=== PATIENT | female | born 1945 | race African-American/Black ===

== ENCOUNTER → 2016-10-22 | Outpatient (CLI) | payer MEDICARE ==
[~2016-10-22] MED LIST: "\\\"BP PILL\\\""; ALTOPREV20 MG PO; ASPIRIN81 M1 PO; DAYPRO600 M1 PO; LISINOPRIL-HYDR1 TA1 PO; TRAMADOL HCL50 MG PO; VICODIN 5/500 505 MG PO
== END | disposition home or self-care (01) ==
LOC: RAD 09:20
DX: M25.561 Pain in right knee (principal)

== ENCOUNTER → 2016-10-27 | Outpatient (CLI) | payer MEDICARE | END | disposition home or self-care (01) | LOC: MAMMO 04:36 | DX: R92.1 Mammographic calcification found on diagnostic imaging of breast (principal); Z85.3 Personal history of malignant neoplasm of breast ==

== ENCOUNTER → 2017-08-04 | Outpatient (CLI) | payer OTHER | END | disposition home or self-care (01) | LOC: RAD 13:17 | DX: M25.551 Pain in right hip (principal) ==

== ENCOUNTER → 2017-10-22 | Outpatient (CLI) | payer OTHER | END | disposition home or self-care (01) | LOC: RAD 10:21 | DX: M17.11 Unilateral primary osteoarthritis, right knee (principal) ==

== ENCOUNTER 2017-11-20 19:50 | Emergency (ER) | payer OTHER ==
[~2017-11-20] VITALS: Ht 170.1 cm; Wt 81.6 kg
[2017-11-20 19:51] VITALS: BP 146/78
[2017-11-20 20:42] LABS: BASO % 0.5 % (0.0-1.0); HEMOGLOBIN 10.4 g/dl (12.0-16.0); LYMPH # 0.4 10*3/uL (1.3-4.4); LYMPH % 8.7 % (27.0-41.0); MEAN CELL VOLUME 86.8 fl (81.0-99.0); MEAN CORPUSCULAR HGB 29.1 pg (27.0-31.0); MEAN CORPUSCULAR HGB CONC 33.5 g/dl (33.0-37.0); MEAN PLATELET VOLUME 12.8 fl (9.6-12.3); MONO # 0.5 10*3/uL (0.1-1.0); MONO % 11.4 % (3.0-9.0); NEUT # 3.3 10*3/uL (2.3-7.9); NEUT % 79.2 % (47.0-73.0); PLATELET COUNT AUTOMATED 139 10*3/uL (130-400); RED BLOOD COUNT 3.57 10*6/uL (4.10-5.10); RED CELL DISTRI WIDTH 13.2 % (0-14.5); WHITE BLOOD COUNT 4.1 10*3/uL (4.8-10.8)
[2017-11-20 21:00] LABS: ALBUMIN 3.4 gm/dl (3.1-4.5); ALKALINE PHOSPHATASE 55 U/L (45-117); BUN 14 mg/dl (7-24); CHLORIDE 103 mmol/L (98-107); CREATININE 1.06 mg/dL (0.55-1.02); POTASSIUM 3.1 mmol/L (3.5-5.1); SGOT/AST 21 IU/L (3-35); SGPT/ALT 23 U/L (12-78); SODIUM 139 mmol/L (136-145); TOTAL PROTEIN 7.9 gm/dL (6.4-8.2)
[2017-11-20 21:01] LABS: TROPONIN I < 0.015 ng/ml (<0.045)
[2017-11-20] MEDS ORDERED: ZOFRAN ODT4 MG SL (22:56)
[2017-11-20] MEDS ORDERED: K-TAB20 MEQ PO (22:56)
[2017-11-24] MEDS ORDERED: ZESTORETIC 20-1 EACH PO (21:10)
== END 2017-11-20 23:05 | disposition home or self-care (01) ==
LOC: ED 19:50
PROVIDERS: Physician Assistant
DX: E87.6 Hypokalemia (principal); B34.9 Viral infection, unspecified; G89.29 Other chronic pain; M25.561 Pain in right knee; Z79.899 Other long term (current) drug therapy; Z88.0 Allergy status to penicillin

== ENCOUNTER → 2018-07-01 | Outpatient (CLI) | payer OTHER ==
[~2018-07-01] MED LIST changes: +K-TAB20 MEQ PO; +ZESTORETIC 20-1 EACH PO; +ZOFRAN ODT4 MG SL
== END | disposition home or self-care (01) ==
LOC: MAMMO 08:34
DX: R92.1 Mammographic calcification found on diagnostic imaging of breast (principal); Z85.3 Personal history of malignant neoplasm of breast

== ENCOUNTER 2018-11-09 18:24 | Emergency (ER) | payer OTHER ==
[~2018-11-09] VITALS: Ht 170.1 cm; Wt 83.9 kg
--- NOTE | ~2018-11-09 | EKG ---
[place], [place] ELECTROCARDIOGRAM REPORT NAME: BRITNEY DUMONT UNIT #: [id number] ROOM: DOCTOR: EPIPHANY DRAFT REPORT BIRTHDATE: [birth year] [facility] Test Date: 2018-11-09 Test Time: 18:28:29 Pat Name: BRITNEY DUMONT Department: ER Room: Gender: F Flare Man: Evie Bryant : 1945 Requested By: SHAHLA MACEDO Order Number: [id number] Reading MD: Johan Cortes Measurements Intervals [place] Rate: 69 P: 46 GA: 147 QRS: -19 QRSD: 90 T: -3 QT: 398 QTc: 427 Interpretive Statements Sinus rhythm Probable left atrial enlargement Abnormal R-wave progression, early transition Left ventricular hypertrophy Anterior Q waves, possibly due to LVH Borderline T abnormalities, inferior leads Electronically Signed On 11-10-2018 11:00:41 PDT by Johan Cortes CM:EKGRPT:ELECTROCARDIOGRAM REPORT [id number] SHAHLA MCKEE DRAFT REPORT SHAHLA MACEDO M.D.
[2018-11-09 18:36] VITALS: BP 119/75
[2018-11-09 19:48] LABS: BASO % 0.3 % (0.0-1.0); EOS % 0.5 % (1.0-4.0); HEMATOCRIT 34.1 % (37.0-47.0); LYMPH # 1.1 10*3/uL (1.3-4.4); LYMPH % 17.1 % (27.0-41.0); MEAN CELL VOLUME 90.9 fl (81.0-99.0); MEAN CORPUSCULAR HGB 29.3 pg (27.0-31.0); MEAN CORPUSCULAR HGB CONC 32.3 g/dl (33.0-37.0); MEAN PLATELET VOLUME 12.8 fl (9.6-12.3); MONO # 0.4 10*3/uL (0.1-1.0); MONO % 6.5 % (3.0-9.0); NEUT # 4.8 10*3/uL (2.3-7.9); NEUT % 75.4 % (47.0-73.0); PLATELET COUNT AUTOMATED 162 10*3/uL (130-400); RED BLOOD COUNT 3.75 10*6/uL (4.10-5.10); RED CELL DISTRI WIDTH 12.8 % (0-14.5); WHITE BLOOD COUNT 6.3 10*3/uL (4.8-10.8)
[2018-11-09 20:08] LABS: ALBUMIN 3.3 gm/dl (3.1-4.5); ALKALINE PHOSPHATASE 63 U/L (45-117); BUN 17 mg/dl (7-24); CHLORIDE 108 mmol/L (98-107); LIPASE 92 U/L (73-393); POTASSIUM 3.8 mmol/L (3.5-5.1); SGOT/AST 16 IU/L (3-35); SGPT/ALT 18 U/L (12-78); SODIUM 145 mmol/L (136-145); TOTAL PROTEIN 7.9 gm/dL (6.4-8.2)
[2018-11-09] MEDS ORDERED: ZOFRAN4 MG PO (20:36)
[2018-11-09 23:18] LABS: BILIRUBIN NEGATIVE (NEGATIVE); BLOOD NEGATIVE (NEGATIVE); CLARITY SL CLOUDY (CLEAR); COLOR YELLOW (YELLOW); GLUCOSE NEGATIVE (NEGATIVE); KETONE NEGATIVE (NEGATIVE); LEUKO ESTERASE NEGATIVE (NEGATIVE); NITRITE NEGATIVE (NEGATIVE); SPECIFIC GRAVITY 1.025 (1.005-1.030)
[2018-11-09 23:29] LABS: BACTERIA 1+; EPITHELIAL CELLS TNTC
== END 2018-11-10 00:39 | disposition home or self-care (01) ==
LOC: ED 18:24
PROVIDERS: Nurse Practitioner Family
DX: R55 Syncope and collapse (principal); R11.10 Vomiting, unspecified; R10.9 Unspecified abdominal pain; I10 Essential (primary) hypertension; Z79.899 Other long term (current) drug therapy; Z79.82 Long term (current) use of aspirin

== ENCOUNTER 2020-08-17 14:27 | Emergency (ER) | payer OTHER ==
[~2020-08-17] VITALS: Wt 86.2 kg
[~2020-08-17 14:27] MED LIST changes: +ZOFRAN4 MG PO
[2020-08-17 14:31] VITALS: BP 145/70
== END 2020-08-17 16:42 | disposition home or self-care (01) ==
LOC: ED 14:27
DX: M13.831 Other specified arthritis, right wrist (principal); Z79.899 Other long term (current) drug therapy; Z79.82 Long term (current) use of aspirin

== ENCOUNTER → 2021-05-06 | Outpatient (CLI) | payer OTHER | END | disposition home or self-care (01) | LOC: RAD 09:29 | PROVIDERS: ATTEND Internal Medicine | DX: M19.012 Primary osteoarthritis, left shoulder (principal); M19.011 Primary osteoarthritis, right shoulder; M25.712 Osteophyte, left shoulder; M17.0 Bilateral primary osteoarthritis of knee ==

== ENCOUNTER 2022-01-24 08:04 | Emergency (ER) | payer OTHER ==
[~2022-01-24] VITALS: Ht 170.1 cm; Wt 83.9 kg
[2022-01-24 08:14] VITALS: BP 128/86
== END 2022-01-24 11:22 | disposition home or self-care (01) ==
LOC: ED 08:04
DX: M25.561 Pain in right knee (principal); M79.604 Pain in right leg; Z79.899 Other long term (current) drug therapy; Z79.82 Long term (current) use of aspirin; Z90.710 Acquired absence of both cervix and uterus; Z90.89 Acquired absence of other organs

== ENCOUNTER 2023-11-03 02:58 | Inpatient (IN) | payer MEDICARE ==
[2023-10-30 13:28] VITALS: BP 145/93
[2023-10-30 14:38] LABS: BASO % 0.5 % (0.0-1.0); EOS # 0.1 10*3/uL (0.0-0.4); EOS % 1.8 % (1.0-4.0); LYMPH # 1.4 10*3/uL (1.3-4.4); LYMPH % 36.7 % (27.0-41.0); MEAN CELL VOLUME 92.7 fl (81.0-99.0); MEAN CORPUSCULAR HGB 28.9 pg (27.0-31.0); MEAN CORPUSCULAR HGB CONC 31.2 g/dl (33.0-37.0); MEAN PLATELET VOLUME 11.9 fl (9.6-12.3); MONO # 0.4 10*3/uL (0.1-1.0); MONO % 9.8 % (3.0-9.0); NEUT % 50.9 % (47.0-73.0); PLATELET COUNT AUTOMATED 195 10*3/uL (130-400); RED BLOOD COUNT 3.56 10*6/uL (4.10-5.10); RED CELL DISTRI WIDTH 13.3 % (0-14.5); WHITE BLOOD COUNT 3.9 10*3/uL (4.8-10.8)
[2023-10-30 15:00] LABS: ALKALINE PHOSPHATASE 64 U/L (46-116); BUN 17 mg/dl (9-23); CHLORIDE 105 mmol/L (98-107); POTASSIUM 3.6 mmol/L (3.4-5.1); TOTAL PROTEIN 7.9 gm/dL (6.0-8.0)
[2023-10-30 15:01] LABS: SGPT/ALT < 7 U/L (5-49)
[~2023-11-03] VITALS: Ht 170.2 cm; Wt 81.6 kg
[2023-11-03] VITALS (10 sets, daily range): BP systolic 123–153; BP diastolic 64–92
[~2023-11-03 02:58] MED LIST changes: +FEROSUL325 M1 PO
[2023-11-03] MEDS ORDERED: TRANEXAMIC ACID IN NACL,ISO-OS 100 ML IV ONE ×2 (06:41→07:05)
[2023-11-03] MEDS ORDERED: Lactated Ringer's Solution 1,000 ML IV ONE (06:41)
[2023-11-03] MEDS ORDERED: ceFAZolin sodium/sodium chlor 20 ML IV ONE (06:42)
[2023-11-03 06:53] LABS: BILIRUBIN Negative (Negative); BLOOD Negative (Negative); CLARITY Clear (Clear); COLOR Yellow (Yellow); GLUCOSE Negative (Negative); KETONE Negative (Negative); LEUKO ESTERASE Negative (Negative); NITRITE Negative (Negative)
[2023-11-03] MEDS ORDERED: Lactated Ringer's Solution 1,000 ML IV SCH (07:05)
[2023-11-03] MEDS ORDERED: ceFAZolin sodium 2GM/20ML IV ONE (07:05)
[2023-11-03] MEDS ORDERED: Midazolam Hydrochloride 2 MG/2 ML VIAL IV ONE ×2 (07:05→15:22)
[2023-11-03] MEDS ORDERED: DEXAMETHASONE SODIUM PHOSP/PRESERVATIVE FREE 10 MG/ML VIAL ONE (07:09)
[2023-11-03] MEDS ORDERED: Ropivacaine Hydrochloride 5 MG/ML 20 ML AMP IJ ONE (07:09)
[2023-11-03] MEDS ORDERED: Midazolam Hydrochloride 2 MG/2 ML VIAL ONE (07:10)
[2023-11-03 07:17] LABS: BACTERIA 1+
[2023-11-03] MEDS ORDERED: SODIUM CHLORIDE 0.9% 1,000 ML IV ONE (07:46)
[2023-11-03] MEDS ORDERED: EPINEPHrine/Lidocaine Hydroc 20 ML VIAL ONE (07:48)
[2023-11-03] MEDS ORDERED: Ondansetron Hydrochloride 4 MG/2 ML VIAL IV PRN (07:55)
[2023-11-03] MEDS ORDERED: Acetaminophen/Hydrocodone 5 MG/325 MG TABLET PO PRN (07:55)
[2023-11-03] MEDS ORDERED: MORPHINE Sulfate 4 MG IV PRN (07:55)
[2023-11-03] MEDS ORDERED: MORPHINE Sulfate 2 MG/ML SYR IV PRN (08:35)
[2023-11-03] MEDS ORDERED: Cholecalciferol 2,000 UNIT TABLET (50 MCG) PO SCH (10:00)
[2023-11-03] MEDS ORDERED: DOCUSATE SODIUM 100 MG CAP PO SCH (10:00)
[2023-11-03] MEDS ORDERED: ASPIRIN ENTERIC COATED 81 MG TAB PO SCH (10:00)
[2023-11-03] MEDS ORDERED: LISINOPRIL 20 MG TAB PO SCH (13:35)
[2023-11-03] MEDS ORDERED: HYDROCHLOROTHIAZIDE 12.5 MG CAP PO SCH (13:35)
[2023-11-03] MEDS ORDERED: ceFAZolin sodium 1 GM in SYRINGE INFUSION 10 ML IV SCH (14:00)
[2023-11-03] MEDS ORDERED: Ondansetron Hydrochloride 4 MG/2 ML VIAL IV ONE (15:22)
[2023-11-03] MEDS ORDERED: GLYCOPYRROLATE IN WATER/PF 0.4 MG/2 ML SYRINGE IV ONE (15:22)
[2023-11-03] MEDS ORDERED: PROPOFOL 200 MG/20 ML VIAL IV ONE (15:22)
[2023-11-03] MEDS ORDERED: POTASSIUM CHLORIDE 20 MEQ TAB PO SCH (18:00)
[2023-11-04] VITALS: BP 124/62
[2023-11-04 05:24] LABS: BUN 16 mg/dl (9-23); CHLORIDE 105 mmol/L (98-107); CHOLESTEROL 182 mg/dL (<200); FREE T4 1.21 ng/dl (0.89-1.76); LDL CHOLESTEROL 111 mg/dL (9-159); POTASSIUM 3.9 mmol/L (3.4-5.1); TRIGLYCERIDES 104 mg/dl (<150)
[2023-11-04 06:01] LABS: HEMATOCRIT 32.7 % (37.0-47.0); MEAN CORPUSCULAR HGB 29.3 pg (27.0-31.0); MEAN CORPUSCULAR HGB CONC 31.2 g/dl (33.0-37.0); MEAN PLATELET VOLUME 13.2 fl (9.6-12.3); PLATELET COUNT AUTOMATED 182 10*3/uL (130-400); RED BLOOD COUNT 3.48 10*6/uL (4.10-5.10); RED CELL DISTRI WIDTH 13.4 % (0-14.5); WHITE BLOOD COUNT 8.8 10*3/uL (4.8-10.8)
[2023-11-04 06:43] LABS: VITAMIN D, 25-HYDROXY 12.3 ng/mL (30-100)
[2023-11-04 06:56] LABS: MANUAL DIFF REFLEX YES
[2023-11-04 06:57] LABS: TOTAL CELLS COUNTED 100 #CELLS
[2023-11-04 06:58] LABS: PLATELET SUFFICIENCY NORMAL (NORMAL)
[2023-11-04 08:00] VITALS: BP 141/67
[2023-11-04] MEDS ORDERED: ASPIRIN ENTERIC COATED 81 MG TAB PO SCH (10:00)
[2023-11-04] MEDS ORDERED: SIMVASTATIN 20 MG TAB PO SCH (10:00)
[2023-11-04] MEDS ORDERED: FERROUS SULFATE 325 MG TAB PO SCH (10:00)
[2023-11-04 12:00] VITALS: BP 104/81
[2023-11-04] MEDS ORDERED: DICLOFENAC SODIUM 100 GM TUBE T SCH (14:00)
[2023-11-04 16:00] VITALS: BP 164/92
[2023-11-04 20:00] VITALS: BP 174/85
[2023-11-04 21:28] VITALS: BP 152/82
[2023-11-05] VITALS: BP 159/74
[2023-11-05 06:24] LABS: BASO % 0.1 % (0.0-1.0); LYMPH # 1.3 10*3/uL (1.3-4.4); LYMPH % 15.6 % (27.0-41.0); MEAN CELL VOLUME 91.7 fl (81.0-99.0); MEAN CORPUSCULAR HGB 29.3 pg (27.0-31.0); MEAN CORPUSCULAR HGB CONC 31.9 g/dl (33.0-37.0); MONO # 0.9 10*3/uL (0.1-1.0); MONO % 10.9 % (3.0-9.0); PLATELET COUNT AUTOMATED 178 10*3/uL (130-400); RED BLOOD COUNT 3.38 10*6/uL (4.10-5.10); RED CELL DISTRI WIDTH 13.3 % (0-14.5); WHITE BLOOD COUNT 8.2 10*3/uL (4.8-10.8)
[2023-11-05 06:46] LABS: BUN 18 mg/dl (9-23); CHLORIDE 102 mmol/L (98-107); POTASSIUM 3.8 mmol/L (3.4-5.1)
[2023-11-05 08:00] VITALS: BP 136/95
[2023-11-05] MEDS ORDERED: HYDROCHLOROTHIAZIDE 25 MG TAB PO SCH (10:00)
[2023-11-05] MEDS ORDERED: LISINOPRIL 40 MG TAB PO SCH (10:00)
[2023-11-05 12:00] VITALS: BP 139/75
[2023-11-05 16:00] VITALS: BP 144/76
[2023-11-05 20:00] VITALS: BP 136/66
[2023-11-06] VITALS: BP 126/71
[2023-11-06 06:19] LABS: BASO % 0.3 % (0.0-1.0); EOS % 0.1 % (1.0-4.0); HEMATOCRIT 34.4 % (37.0-47.0); LYMPH # 1.5 10*3/uL (1.3-4.4); MEAN CORPUSCULAR HGB 29.7 pg (27.0-31.0); MEAN PLATELET VOLUME 12.7 fl (9.6-12.3); MONO # 0.8 10*3/uL (0.1-1.0); MONO % 9.6 % (3.0-9.0); NEUT # 5.6 10*3/uL (2.3-7.9); NEUT % 70.7 % (47.0-73.0); PLATELET COUNT AUTOMATED 189 10*3/uL (130-400); RED CELL DISTRI WIDTH 13.2 % (0-14.5)
[2023-11-06 08:00] VITALS: BP 124/77
[2023-11-06 12:00] VITALS: BP 118/69
[2023-11-06 16:00] VITALS: BP 119/71
[2023-11-06 20:00] VITALS: BP 123/68
[2023-11-06] MEDS ORDERED: Magnesium Hydroxide 30 ML UDC PO PRN (20:00)
[2023-11-06] MEDS ORDERED: BISACODYL 5 MG TAB PO PRN (20:00)
[2023-11-07] VITALS: BP 119/68
[2023-11-07 08:00] VITALS: BP 101/60
[2023-11-07 12:00] VITALS: BP 118/68
[2023-11-07 16:00] VITALS: BP 102/61
[2023-11-07 20:00] VITALS: BP 98/56
[2023-11-08] VITALS: BP 117/69
[2023-11-08 08:00] VITALS: BP 135/76
[2023-11-08 12:00] VITALS: BP 100/65
[2023-11-08] MEDS ORDERED: Acetaminophen/Oxycodone 5 MG/325 MG TABLET PO SCH (12:00)
[2023-11-08 16:00] VITALS: BP 120/63
[2023-11-08] MEDS ORDERED: Acetaminophen/Oxycodone 5 MG/325 MG TABLET PO PRN (19:45)
[2023-11-08 20:00] VITALS: BP 109/55
[2023-11-09] VITALS: BP 112/54
[2023-11-09 08:00] VITALS: BP 104/57
[2023-11-09 12:00] VITALS: BP 109/65
[2023-11-09 16:00] VITALS: BP 135/76
[2023-11-09 20:00] VITALS: BP 139/65
[2023-11-10] VITALS: BP 129/71
[2023-11-10 08:00] VITALS: BP 100/55
[2023-11-10 12:00] VITALS: BP 103/65
[2023-11-10] MEDS ORDERED: VITAMIN D350 MCG PO (12:07)
[2023-11-10] MEDS ORDERED: OXYCODONE-ACET1 EAC3 PO (12:07)
[2023-11-10 15:34] VITALS: BP 103/73
== END 2023-11-10 17:52 | DRG 470 ==
LOC: SDC 02:58 → 5E 10:25 → SDC 13:15 → 5E 11-10 17:52
PROVIDERS: Orthopaedic Surgery; Registered Nurse; ADMIT Internal Medicine; ATTEND Internal Medicine
PROC: 0SRC0J9 Replacement of Right Knee Joint with Synthetic Substitute, Cemented, Open Approach (ICD-10-PCS; principal; 2023-11-03)
PROC: 3E0T3BZ Introduction of Anesthetic Agent into Peripheral Nerves and Plexi, Percutaneous Approach (ICD-10-PCS; 2023-11-03)
PROC: 3E0T33Z Introduction of Anti-inflammatory into Peripheral Nerves and Plexi, Percutaneous Approach (ICD-10-PCS; 2023-11-03)
DX: M17.11 Unilateral primary osteoarthritis, right knee (principal); N18.31 Chronic kidney disease, stage 3a; I12.9 Hypertensive chronic kidney disease with stage 1 through stage 4 chronic kidney disease, or unspecified chronic kidney disease; E78.01 Familial hypercholesterolemia; Z90.710 Acquired absence of both cervix and uterus; Z80.0 Family history of malignant neoplasm of digestive organs; Z82.49 Family history of ischemic heart disease and other diseases of the circulatory system; Z79.82 Long term (current) use of aspirin; Z79.899 Other long term (current) drug therapy

== ENCOUNTER → 2023-11-27 | Outpatient (CLI) | payer MEDICARE ==
[~2023-11-27] MED LIST changes: +OXYCODONE-ACET1 EAC3 PO; +VITAMIN D350 MCG PO
== END | disposition home or self-care (01) ==
LOC: ORTHO 01:57
PROVIDERS: ATTEND Orthopaedic Surgery
DX: M17.11 Unilateral primary osteoarthritis, right knee (principal)

== ENCOUNTER → 2023-12-18 | Outpatient (CLI) | payer MEDICARE | END | disposition home or self-care (01) | LOC: ORTHO 03:11 | PROVIDERS: ATTEND Orthopaedic Surgery | DX: M25.461 Effusion, right knee (principal); M79.89 Other specified soft tissue disorders; Z96.651 Presence of right artificial knee joint ==

== ENCOUNTER → 2024-01-22 | Outpatient (CLI) | payer MEDICARE | END | disposition home or self-care (01) | LOC: ORTHO 01:09 | PROVIDERS: ATTEND Orthopaedic Surgery | DX: M79.89 Other specified soft tissue disorders (principal); Z96.651 Presence of right artificial knee joint ==

== ENCOUNTER → 2024-04-22 | Outpatient (CLI) | payer MEDICARE | END | disposition home or self-care (01) | LOC: ORTHO 04:27 | PROVIDERS: ATTEND Orthopaedic Surgery | DX: M25.461 Effusion, right knee (principal); Z96.651 Presence of right artificial knee joint ==